=== PATIENT | male | born 1945 | race Caucasian/White ===

== ENCOUNTER 2019-07-13 17:35 | Emergency (ER) | payer OTHER, MEDICARE, BC ==
--- NOTE | 2019-07-13 17:43 | EDM.PDOC ---
ED HPI GENERAL MEDICAL PROBLEM - General Chief Complaint: Trauma Stated Complaint: [facility] Time Seen by Provider: 07/13/19 17:39 Source of Information: Reports: Patient, EMS History Limitations: Reports: No Limitations - History of Present Illness INITIAL COMMENTS - FREE TEXT/NARRATIVE: Trauma alert called on this gentleman. He was attended immediately. Patient apparently was getting onto a unfamiliar horse when he was bucked off. Last thing he remembers is trying to mild the horse and he states he never did get up in the sagittal. Of course is new to him in terms of his [place]. Patient was wearing a helmet. Helmet is fracture cracked in the posterior and frontal aspect of the helmet on the left side. He has perseveration with asking the same questions over and over again en route to hospital. There is a question whether had transient loss of consciousness. He suffered abrasions to his left upper back and posterior shoulder some diffuse cervical and upper thoracic spine pain. Also abrasions to both buttocks. Onset: Today Onset Date: 07/13/19 Onset Time: 16:30 Duration: Minutes: Location: Reports: Head, Neck, Back (Left posterior shoulder and upper thoracic spine), Pelvis (Abrasions to both superior buttocks.) Quality: Reports: Ache, Burning Severity: Mild Improves with: Reports: None Worsens with: Reports: None Context: Reports: Trauma (Was bucked off a horse as he was getting onto the horse.). Denies: Activity, Exercise, Lifting, Sick Contact Associated Symptoms: Reports: Confusion ( perseverration askg the sme questions oer and over again butwhat is happened to him en route to [place]. He fractured the helmet that he was wearing both exceptionally and in the left frontal corner of the helmet.). Denies: Chest Pain ( History alone suggests that he suffered a concussion. He has amnesia for the event. He does remember getting on the horse however.), Cough, cough w sputum, Diaphoresis, Fever/Chills , Headaches, Loss of Appetite, Malaise, Nausea/Vomiting, Rash, Seizure, Shortness of Breath, Syncope, Weakness Treatments ENTERTAINMENT DIRECTOR: Reports: Other (see below) (None.) Left Lower Back Pain Score (Numeric/FACES): 5 - Related Data Allergies Allergy/AdvReac Type Severity Reaction Status Date / Time shellfish derived Allergy Itching Verified 07/13/19 17:38 Home Meds: Home Meds Aspirin 81 mg PO DAILY 07/13/19 [History] Famotidine 20 mg PO DAILY 07/13/19 [History] Fish Oil/[place]-3 Fatty Acids [Fish Oil 1,000 MG] 2,000 mg PO DAILY 07/13/19 [ History] Furosemide [Lasix] 20 mg PO DAILY 07/13/19 [History] Irbesartan 300 mg PO DAILY 07/13/19 [History] Lutein/Minerals/Vit A,C & E [I-Joann] 1 each PO DAILY 07/13/19 [History] Naproxen Sodium 220 mg PO ASDIRECTED PRN 07/13/19 [History] amLODIPine [Norvasc] 10 mg PO DAILY 07/13/19 [History] atorvaSTATin Calcium [Atorvastatin Calcium] 80 mg PO DAILY 07/13/19 [History] oxyCODONE HCl/Acetaminophen [Percocet 5-325 mg Tablet] 1 - 2 each PO Q4H PRN # 20 tablet 07/13/19 [Rx] Past Medical History Cardiovascular History: Reports: High Cholesterol, Hypertension Gastrointestinal History: Reports: GERD Genitourinary History: Reports: BPH Musculoskeletal History: Reports: Osteoarthritis (Severe generalized osteoarthritis affecting his cervical lumbar spine. Effects his fingers feet wrists knees and hips. Shoulders are also sore most of the time.) Social & Family History - Living Situation & Occupation Occupation: Employed (Rancher) Review of Systems - Review of Systems Review Of Systems: See Below Constitutional: Denies: Chills, Diaphoresis, Fever, Weakness Eyes: Reports: No Symptoms Ears: Reports: No Symptoms Nose: Reports: No Symptoms Mouth/Throat: Reports: No Symptoms Respiratory: Reports: Shortness of Breath. Denies: Wheezing, Pleuritic Chest Pain Cardiovascular: Reports: Other (Has high blood pressure.). Denies: Chest Pain, Edema, Irregular Heart Rate, Syncope GI/Abdominal: Reports: Other (Intermittent problems with heartburn.) Genitourinary: Reports: Other (Urinary frequency nocturia usually 2 or 3.) Musculoskeletal: Reports: Other (Generalized arthritis pain involving his feet ankles hips knees shoulders wrists hands neck and low back.) Skin: Reports: No Symptoms Neurological: Reports: No Symptoms Psychiatric: Reports: No Symptoms ED EXAM, GENERAL - Physical Exam Exam: See Below Exam Limited By: No Limitations General Appearance: Alert, WD/WN, No Apparent Distress, Other (Very stoic fellow. Vital signs reveal afebrile. Pulse is 59 and sinus respiratory 17 sats are 92% on room air BP 1 5264.) Eye Exam: Bilateral Eye: Normal Inspection Ears: Normal TMs Nose: Nasal Deformity Throat/Mouth: Normal Inspection, Normal Lips, Normal Oropharynx, Other (No intraoral injuries noted bite injuries to his lips or tongue. No dental injuries.) Head: Other (A few superficial abrasions to the occipital scalp.). No: Facial Swelling, Facial Tenderness ( No palpable scalp hematoma.) Neck: Tender Lateral ( Motion is diminished substantially due to arthritis.), Other (He has some pain over C5-C6 on the left side as compared to the right.) Respiratory/Chest: No Respiratory Distress, Lungs Clear, No Accessory Muscle Use , Respiratory Distress (Decreased air into the lower 25% of lung polo bilaterally compatible with mild COPD. The occasional expiratory wheeze noted.) , Decreased Breath Sounds, Other (Impression of his ribs and sternum gave him no pain. There is no subcutaneous emphysema. No crepitus) Cardiovascular: Regular Rate, Rhythm, No Edema, No Gallop, No Murmur, No Rub. No: Normal Peripheral Pulses Peripheral Pulses: 2+: Posterior Tibial (L), Posterior Tibial (R), Dorsalis Pedis (L), Dorsalis Pedis (R) GI/Abdominal: Normal Bowel Sounds, Soft, Non-Tender, No Organomegaly, No Mass, Pelvis Stable Back Exam: Other (Patient has a large abrasion is 8 cm x 6 cm over his posterior left shoulder. There is some pain over the acromioclavicular joint in this area as well. Appreciated lower cervical spine and upper thoracic spine in distribution of T1-T5. His mid thoracolumbar junction appears to be okay. No pain in his lumbar spine.) Extremities: Other (He has very limited internal/external rotation of both hips compare with with osteoarthritis. Similarly cost her 3 changes in both knees. He has osteoarthritic changes in both hands but wrists are intact elbows are intact and he can lift both arms above his head. He has some mild on his left elbow and forearm but no superficial skin injuries.) Neurological: Alert, Oriented, CN II-XII Intact, Normal Cognition Psychiatric: Normal Affect, Normal Mood Skin Exam: Warm, Dry, Other (Large abrasion posterior left shoulder.) Course - Vital Signs Last Recorded V/S: Last Vital Signs Temp 36.9 C 07/13/19 17:38 Pulse 59 L 07/13/19 17:38 Resp 17 07/13/19 17:38 BP 152/64 H 07/13/19 17:38 Pulse Ox 92 L 07/13/19 17:38 - Orders/Labs/Meds Orders: Active Orders 24 hr Category Date Time Status DME for Discharge [COMM] Stat Oth 07/13/19 18:59 Ordered - Radiology Interpretation Free Text/Narrative:: 74-year-old male presents to the ED after being bucked off a horse. This forces not real familiar to me states [place] the [place] and half [place]. Was trying to mild the horse bite getting into the stirrups it started bucking and threw him off and up into the air. He landed hard on the ground on his head with perhaps transient loss of conscious. He was wearing a helmet and he fractured the helmet a hockey helmet in half and make supple aspect as well as a fracture through the left frontal aspect of the helmet. He had perseveration with repeated questions all the way to [facility]. Asking the same questions over and over again. This indicates signed the symptoms of a concussion. He has amnesia for the event. Examination of his head shows no obvious scalp hematomas. There is some superficial abrasions occipital scalp. Decreased range of motion of his cervical spine due to osteophytic changes and is very hard to differentiate acute from chronic pain. In his upper thoracic spine as well from T1-T5. Large abrasion posterior left shoulder 8 cm x 6 cm. No pain in his mid lower thoracic spine. He is does some superficial abrasions to the superior aspect of both but talks over the posterior iliac crests. He has diminished range of motion of both hips due to arthritis similarly in the knees but no evidence of injuries below the waist. Plan CT head CT cervical spine CT thoracic spine x-rays left shoulder to be done. - Re-Assessments/Exams Free Text/Narrative Re-Assessment/Exam: 07/13/19 18:50: CT of the head reveals the ventricles along with the basal cisterns and sulci over the convexities to be within normal limits for the patient's age. No abnormal parenchymal densities are identified. No evidence of intracranial hemorrhage or skull fracture. Opacified left frontal sinus is seen as well as mild mucosal thickening within the ethmoid sinuses compatible with chronic sinus situs. The mastoid sinuses are clear. CT cervical spine spine reveals diffuse degenerative change. There is diffuse disc space narrowing throughout the entire cervical spine. Diffuse anterior and posterior endplate osteophytes are seen at multiple levels. Degenerative changes also noted between the dens and the anterior arch of C1. Diffuse narrowing is seen within the neural foramina. Diffuse degenerative apophyseal changes noted. No fractures are appreciated. Thoracic spine also reveals diffuse degenerative changes with diffuse disc space narrowing noted at multiple levels. Scattered endplate osteophytes are seen most prominent within the lower thoracic and lumbar spine. No fractures are identified. X-rays of the left shoulder reveal a compression fracture of the superior aspect of the humerus proximally. It is extensive degenerative arthritis at the acromioclavicular and glenohumeral joint space. There is perhaps a undisplaced crack in the glenoid portion of these scapula as well. This is a stable fracture no further x-rays will be obtained. Patient will be placed in a sling and swath. His abrasions need to be cleansed daily with soap and water showering is okay. Then apply topical antibiotic such bacitracin Polysporin once daily. He guards to closed head injury with concussion he is to take life very easy for the next 2 weeks. He will not perform any activities that risk a chance of another closed head injury. His was present and understands these directions. Advise follow-up with Dr. Hernandez in orthopedic surgery clinic in 10-12 days time in regard to his fractures left shoulder. Given a prescription for 20 tablets of Percocet 5/325 mg strength one or 2 every 4-6 hours needed for pain relief for the next few days. Departure - Departure Time of Disposition: 19:03 Disposition: Home, Self-Care 01 Condition: Fair Clinical Impression: Concussion with brief (less than one hour) loss of consciousness, Abrasion, multiple sites Fracture of left shoulder Qualifiers: Encounter type: initial encounter Fracture type: closed Qualified Code(s): S42.92XA - Fracture of left shoulder girdle, part unspecified, initial encounter for closed fracture Fracture of proximal end of humerus Qualifiers: Encounter type: initial encounter Fracture type: closed Fracture morphology: other fracture Fracture alignment: nondisplaced Laterality: left Qualified Code( s): S42.295A - Other nondisplaced fracture of upper end of left humerus, initial encounter for closed fracture Closed head injury with concussion Qualifiers: Encounter type: initial encounter Loss of consciousness presence/duration: with LOC of 30 min or less Qualified Code(s): S06.0X1A - Concussion with loss of consciousness of 30 minutes or less, initial encounter - Discharge Information *PRESCRIPTION DRUG MONITORING PROGRAM REVIEWED*: Not Applicable *COPY OF PRESCRIPTION DRUG MONITORING REPORT IN PATIENT CHITRA: Not Applicable Prescriptions: oxyCODONE HCl/Acetaminophen [Percocet 5-325 mg Tablet] 1 - 2 each PO Q4H PRN # 20 tablet PRN Reason: pain relief. Instructions: Humerus Fracture Treated With Immobilization, [id number], Concussion, Adult, [id number] Referrals: PCP,Not In Area [Primary Care Provider] - Forms: ED Department Discharge Additional Instructions: Evaluation in the emergency room this afternoon after being bucked off a horse at home. Luckily work shows toward helmet before getting on this horse which proved to be a great idea. He was bucked off a horse and landed hard on your head fracturing the back of the helmet and the front of the helmet protected your head and brain. However he did lose consciousness for short period of time and definitely suffered a concussion by the way the paramedics discussed your symptoms en route to [place]. Asking the same questions over and over again because you could not remember what it happened to you. Concussion treatment is brain rest for the next 2 weeks and not doing any activities that would risk a second head injury in the next 2 weeks as this proves to be very serious. You have suffered injuries to your cervical spine and upper back but no bone fractures were identified on CT scans of this area. No evidence of right rib fractures or injuries to the abdomen or lower extremities. There are abrasions to both upper buttock cheeks along the posteriorly iliac crests. There is also a large abrasion to the posterior left shoulder. X-rays of the shoulder reveal a fracture of the proximal aspect of the humerus and potentially in the shoulder blade itself which is in good position. Treatment for this is time to heal. Usually a sling and swath for the next 3 weeks to keep the arm immobilized until it can heal. Suggest making an appointment to follow-up with orthopedic surgeon Dr. Hernandez in 10-12 days time. Please call tomorrow morning. His phone number is [phone]. SPECT to be much more stiff and sore tomorrow and the next day. Percocet tabs 5/325 mg one or 2 every 4-6 hours needed for pain relief. Of note if you need to quite a few of these tablets over the next few days they will cause constipation. Abrasion should be cleansed daily with soap and water. Showering is okay. Then apply topical anabolic such as bacitracin or Polysporin to these wounds at least once daily. - My Orders Last 24 Hours: My Active Orders 07/13/19 18:59 DME for Discharge [COMM] Stat - Assessment/Plan Last 24 Hours: My Active Orders 07/13/19 18:59 DME for Discharge [COMM] Stat
--- NOTE | 2019-07-13 18:25 | CR ---
Left shoulder: 4 views left shoulder were obtained. Deformity is noted within the superior glenoid and within the acromion process. Areas of sclerosis are seen within both these areas and findings are believed to be chronic. There is remodeling along the undersurface of the acromion process because of pressure from the humeral head due to chronic rotator cuff tear. There is deformity of the surgical neck of the humerus compatible with old healed fracture. There is one lucent line being seen within the glenoid which could represent an acute fracture and CT would be needed to confirm. Impression: 1. Deformity which appears to be old with change from chronic rotator cuff tear. 2. Lucent line on one view within the glenoid and difficult to exclude an acute fracture. CT would be helpful to confirm or rule out. Diagnostic code #3
--- NOTE | 2019-07-13 18:27 | CT ---
CT thoracic spine Technique: Multiple axial sections were obtained through the thoracic spine. Reconstructed coronal and sagittal images were obtained. Findings: Diffuse disc space narrowing is noted within the cervical spine as well as within the thoracic spine. Scattered endplate osteophytes are seen most prominent within the lower thoracic and lumbar spine. Vertebral body heights are maintained. Scattered degenerative apophyseal change is seen throughout the thoracic spine. No acute fracture line or abnormal subluxation is seen. Impression: 1. Diffuse degenerative change. Nothing acute is appreciated on CT thoracic spine exam. Diagnostic code #2
--- NOTE | 2019-07-13 18:30 | CT ---
CT cervical spine Technique: Multiple axial sections were obtained from above C1 inferiorly to the bottom of T1. Reconstructed sagittal and coronal images were obtained. Findings: Diffuse disc space narrowing is seen throughout the cervical spine. Diffuse anterior and posterior endplate osteophytes are seen. Degenerative change is also noted between the dens and anterior arch of C1. Diffuse narrowing is seen within the neural foramina. Diffuse degenerative apophyseal change is noted. No fracture is appreciated. Impression: 1. Diffuse degenerative change. No acute fracture or abnormal subluxation is seen. Diagnostic code #2
--- NOTE | 2019-07-13 18:33 | CT ---
Head CT Technique: Multiple axial sections through the brain were obtained. Intravenous contrast was not utilized. Comparison: No prior intracranial imaging is available. Findings: Ventricles along with basal cisterns and sulci over the convexities appear within normal limits for the patient's age. No abnormal parenchymal densities are seen. No evidence of intracranial hemorrhage. No midline shift or mass effect is seen. Opacified left frontal sinus is seen as well as mild mucosal thickening within the ethmoid sinuses. These findings are most likely pre-existing and chronic. Mastoid sinuses are clear. No acute calvarial abnormality is seen. Diagnostic code #2
== END 2019-07-13 19:33 | disposition home or self-care (01) ==
LOC: JD.ED 17:35
DX: S06.0X1A Concussion with loss of consciousness of 30 minutes or less, initial encounter (principal); S42.295A Other nondisplaced fracture of upper end of left humerus, initial encounter for closed fracture; I10 Essential (primary) hypertension; K21.9 Gastro-esophageal reflux disease without esophagitis; E78.00 Pure hypercholesterolemia, unspecified; M19.90 Unspecified osteoarthritis, unspecified site; Z91.013 Allergy to seafood; Z79.82 Long term (current) use of aspirin; Z79.899 Other long term (current) drug therapy; W55.12XA Struck by horse, initial encounter
CPT/HCPCS: 70450; 70450-26; 72125; 72125-26; 72128; 72128-26; 73030-26-LT; 73030-LT; 99284; 99285-25